=== PATIENT | female | born 1985 | race Caucasian/White ===

== ENCOUNTER 2024-03-17 09:03 | Emergency (ER) | payer BC, SELFPAY ==
[2024-03-17 09:03] VITALS: BP 121/81
--- NOTE | 2024-03-17 09:17 | ED.GENMED ---
History of Present Illness
General
Chief Complaint: Musculo-Skeletal Complaint
Source: patient
Exam Limitations: none
Time Seen by Provider: 03/17/24 09:11
Nursing documentation reviewed up to this point in time: agreed with
History of Present Illness
History of Present Illness:
38-year-old female with history as document presents to the emergency room for evaluation of right foot injury. Patient was apparently planned with her daughter Saturday night and accidentally kicked a bed frame. Injured right third toe and has
pain going into her foot. Came to the emergency room for assessment. She has been weightbearing. No other injuries.
Past History
Past History
ED Past Medical History: Asthma and Other (Anemia, peptic ulcer disease)
ED Past Surgical History: Cholecystectomy, , Gynecological (Endometrial ablation, tubal ligation) and Other (Gastric bypass)
Social History
Tobacco: Smoker
Alcohol: Occasional
Drug: None
Personal:
Living: with family
Employment: Employed
Family History
Family History: Asthma
Review of Systems
Review of Systems
All Other Systems: ROS reviewed and negative except as documented in HPI and ROS
Musculoskeletal: Reports other (Foot/toe injury)
Phy Exam
Physical Exam
Physical Exam:
General: Well appearing and non-toxic
HEENT: protecting airway
Neck: appears supple
CV: No evidence of cyanosis
Resp: No accessory muscle use
Abd: Non-distended
Extremities: Patient has bruising of the right third toe tenderness along the entire length of the toe; she has some tenderness at the MTP joint, no significant tenderness of the midfoot, fifth metatarsal, calcaneus, medial or lateral malleolus; she
has a good strong right DP pulse
Neuro: Alert
Psych: Normal affect
Skin: Intact
Scores
Heart Failure Risk
Heart Failure Risk Score: Not Applicable
Heart Score for Chest Pain Patients
STEMI patient?: Not applicable
Withdrawal Assessment of Alcohol
Withdrawal Assessment Completed?: Not applicable
Course
Orders/Labs/Results
Orders:
Orders
03/17/24 09:05
Foot, Right 3 View [CR Foot - Right Min 3 Views] Urgent
Comment:
Reason For Exam: pain and bruising
Vital Signs
Initial and Last Documented VS:
Initial Vital Signs
Temp Pulse Resp BP Pulse Ox
36.7 C 73 16 121/81 98
03/17/24 09:03 03/17/24 09:03 03/17/24 09:03 03/17/24 09:03 03/17/24 09:03
Last Documented Vital Signs
Temp Pulse Resp BP Pulse Ox
36.7 C 73 16 121/81 98
03/17/24 09:03 03/17/24 09:03 03/17/24 09:03 03/17/24 09:03 03/17/24 09:03
MDM/Problems Addressed
Differential Diagnosis Includes:
Fracture, contusion
MDM/Problems Addressed:
38-year-old female presents for evaluation of a right foot/toe injury. Vitals normal. Exam as above. Sent for x-ray of the foot. Reassess after the above.
X-ray reviewed independently by me shows fracture of the base of the distal phalanx and right third toe. Will place in a postop shoe discharged with PCP follow-up. Weight-bear as tolerated. All questions answered.
*Radiology
Radiology exam reviewed: preliminary read by ED provider
*Pulse Oximetry
Patient hypoxic: no
*Critical Care Note
Total Time (30-74mins, 75-104mins- exclusive of procedures): Not Applicable
Data Reviewed
Source: patient
ED Attending Note
-
Portions of this chart may have been created with voice recognition software.� Occasional wrong word or��sound alike� substitutions may have occurred due to the inherent limitations of voice recognition software.
Discharge Plan
Departure
Patient Disposition: Home (Routine Discharge)
Date of Disposition: 03/17/24
Time of Disposition: 09:42
Patient with high blood pressure during this ER visit?: No
Discharge Problem:
Closed fracture of third toe of right foot
Instructions: Toe Injury (DC)
Prescriptions:
No Action
citalopram [Celexa] 10 MG tablet
10 mg PO HS
cefdinir 300 MG capsule
300 mg PO BID Qty: 14 0RF
albuterol sulfate 2.5 MG/3 ML solution for nebulization
2.5 mg inhalation R Q4HPRN PRN (Reason: SOB) Qty: 30 0RF
methylprednisolone [Medrol (Moshe)] 4 MG tablets,dose pack
4 tab PO . DIRECT Qty: 1 0RF
Activity Restrictions/Additional Instructions:
Thank you for visiting the Emergency Department at [facility].
1. Please schedule a follow up appointment as directed. Call first thing tomorrow morning to make an appointment.
2. If indicated, please take your medications as instructed and indicated on discharge paperwork.
3. If any of your symptoms do not improve, or persist, or become more severe within 6-12 hours, please return to the emergency department for further care.
4. Please return to the emergency department if you develop a headache, neck pain/stiffness, fever greater than 100.4F, chest pain, shortness of breath, persistent nausea, vomiting, slurred speech, difficulty walking, numbness/tingling, weakness,
signs of infection or any other symptoms that are worrisome to you.
Please call [phone] if you have any questions.
Interventions
Interventions:
ED-Musculoskeletal Assessment Last Done: 03/17/24 09:31
Discharge Date and Time
Print Language: HONDURAN
== END 2024-03-17 10:04 | disposition home or self-care (01) ==
LOC: EMR 09:03
PROVIDERS: EMERGENCY PHYSICIAN Emergency Medicine; FAMILY PHYSICIAN Family Medicine
DX: S92.501A Displaced unspecified fracture of right lesser toe(s), initial encounter for closed fracture (principal); S90.121A Contusion of right lesser toe(s) without damage to nail, initial encounter; W22.8XXA Striking against or struck by other objects, initial encounter; Y93.89 Activity, other specified; J45.909 Unspecified asthma, uncomplicated; E16.2 Hypoglycemia, unspecified; D50.9 Iron deficiency anemia, unspecified; F41.9 Anxiety disorder, unspecified; F17.200 Nicotine dependence, unspecified, uncomplicated; Z87.11 Personal history of peptic ulcer disease; Z98.84 Bariatric surgery status; Z90.49 Acquired absence of other specified parts of digestive tract
CPT/HCPCS: 99283; 73630